=== PATIENT | female | born 1990 | race Native Hawaiian/Other Pacific Islander ===

== ENCOUNTER 2019-08-22 20:30 | Emergency (ER) | payer OTHER ==
[~2019-08-22] VITALS: Ht 167.6 cm; Wt 63.5 kg
[2019-08-23 00:15] VITALS: BP 158/92; TEMP 98.2
== END 2019-08-23 00:15 | disposition home or self-care (01) ==
LOC: ED 20:30
DX: S16.1XXA Strain of muscle, fascia and tendon at neck level, initial encounter (principal); S29.012A Strain of muscle and tendon of back wall of thorax, initial encounter; S39.012A Strain of muscle, fascia and tendon of lower back, initial encounter; N39.0 Urinary tract infection, site not specified; V49.40XA Driver injured in collision with unspecified motor vehicles in traffic accident, initial encounter; Y92.89 Other specified places as the place of occurrence of the external cause
CPT/HCPCS: 81000; 81025; 87077; 87086; 87088; 87186; 96372; 99283; J1885